=== PATIENT | male | born 1970 | race Caucasian/White ===

== ENCOUNTER 2020-11-08 18:13 | Emergency (ER) | payer OTHER ==
[~2020-11-08] VITALS: Ht 180.3 cm; Wt 99.8 kg
[2020-11-08] MEDS ORDERED: NIACIN50 MG PO (18:27)
[2020-11-08] MEDS ORDERED: HYDROCODON-ACE1 EAC7 PO (19:56)
[2020-11-08] MEDS ORDERED: IBUPROFEN 800800 M1 PO (19:56)
[2020-11-08 20:10] VITALS: BP 137/87
== END 2020-11-08 20:10 | disposition home or self-care (01) ==
LOC: M.ERS 18:13
DX: M25.561 Pain in right knee (principal); E78.5 Hyperlipidemia, unspecified; Z79.899 Other long term (current) drug therapy; W01.0XXA Fall on same level from slipping, tripping and stumbling without subsequent striking against object, initial encounter; Y93.89 Activity, other specified; Y92.89 Other specified places as the place of occurrence of the external cause; Y99.8 Other external cause status